=== PATIENT | male | born 1970 | race Caucasian/White ===

== ENCOUNTER 2017-09-14 15:40 | Inpatient (IN) | payer BC, OTHER ==
[~2017-09-14] VITALS: Ht 175.3 cm; Wt 90.7 kg
--- NOTE | 2017-09-14 | NUR ---
CIWA DEFERRED PATIENT SLEEPING. CIWA DEFERRED. RESPIRATION EVEN AND UNLABORED. SAFETY MEASURES IN PLACE. CALL LIGHT IN REACH. WILL CONTINUE TO MONITOR Addendum: 09/15/17 at 0435 by MARINA PALOMARES LVN ERROR: TIME OF CHARTING
--- NOTE | 2017-09-14 06:30 | NUR ---
PRE-ASSESSMENT: Pre-Assessment done at intake office, client is A/O x4, he presents with flat affect, anxious mood, flushed face. T 98, RR 16, BP 160/92, HR 94, spO2 @ 94% on RA, Pain 0/10. He is fully ambulatory. He denies any allergies; he reports a hx of withdrawal-induced seizure. PMH: COPD. Past surgical hx: Left hip surgery (2011), Left knee surgery (1992), Right foot surgery, Partial bowel resection for perforated diverticula (2014), Inguinal hernia repair Medications taken at home Spiriva 2 puffs BID Dulera 200mcg/5mcg 2 puffs BID Proair HFA 1 puff PRN BID Tums 750mg as needed Nicotine gum 2gm as needed Substance history Client reports consuming 1500 mL of vodka on a daily basis, last used 750mL @ 0530 09/14/17. He reports a episode of withdrawal-induced seizures. He has a hx of 12 prior treatments, last being in 2016 from Jul-Oct. Longest period of sobriety for a year on 2008.Protocol regarding Vital signs, urine drug test, blood drawn, and controlled medication discuss with client. Addendum: 09/14/17 at 1936 by MIGUEL ÁNGEL PORTER RN wrong time
--- NOTE | 2017-09-14 16:42 | NUR ---
Admissions Note 46year old male admitted to [facility] for withdrawal from alcohol. Client reports PMH COPD, Chronic tobacco use (he smokes 1 pack daily). Client is oriented to unit, educated about protocols and how to work TV and call light in his room. Weight: 200 pounds. Height: 5'9" CIWA: 5 Client appears anxious, irritable and noted clammy skin, skin intact. Bilateral lung rhonchi on auscultation, abdomen soft, non-tender, no edema noted. Client voice is soft, he avoids eye contact. Client has NKA. Regular diet ordered. Full code status ordered. Client reports a history of seizures x 1 (cant recall date). LBM was 09/14/17, small/brown/soft. Client denies a PCP. He refuses PNA/FLU vaccine at this time, stating he is afraid he might get sick because of it. He gives verbal consent for HIV. Client states that he lives with his mom and stepfather He reports hx of 12 prior treatments here at [facility], last been Jul- Oct 2015, where he relapse shortly after treatment. His longest period of sobriety is for a whole year in 2008. Dr Laurent assessed client. Urine was collected upon admission. All safety measures instituted Seizure precaution. Call light within reach. Will continue to monitor.
[2017-09-14] MEDS ORDERED: MAG HYDROX/AL HYDROX/SIMETH 30 ML LIQUID UDC PO PRN (16:45)
[2017-09-14] MEDS ORDERED: MIRALAX 17 GM POWD.PACK PO PRN (16:45)
[2017-09-14] MEDS ORDERED: LORAZEPAM 2 MG/1 ML VIAL IM PRN (16:45)
[2017-09-14] MEDS ORDERED: LORAZEPAM 1 MG TABLET PO PRN ×2 (16:45)
[2017-09-14] MEDS ORDERED: IV NS 1000 ML 1,000 ML IV PRN (16:45)
[2017-09-14] MEDS ORDERED: DICYCLOMINE HCL 20 MG TABLET PO PRN (16:45)
[2017-09-14] MEDS ORDERED: LOPERAMIDE HCL 2 MG CAPSULE PO PRN ×2 (16:45)
[2017-09-14] MEDS ORDERED: ACETAMINOPHEN 325 MG TABLET PO PRN (16:45)
[2017-09-14] MEDS ORDERED: MAGNESIUM HYDROXIDE 30 ML LIQUID UDC PO PRN (16:45)
[2017-09-14] MEDS ORDERED: CLONIDINE HCL 0.1 MG TABLET PO PRN (16:45)
[2017-09-14] MEDS ORDERED: ONDANSETRON 4 MG/2 ML VIAL IM PRN (16:45)
[2017-09-14] MEDS ORDERED: ONDANSETRON ODT 4 MG TAB.RAPDIS SL PRN (16:45)
[2017-09-14] MEDS ORDERED: IBUPROFEN 400 MG TABLET PO PRN (16:45)
[2017-09-14] MEDS ORDERED: MOME13HF INH (17:26)
[2017-09-14] MEDS ORDERED: TIOT18CA3 IH (17:26)
[2017-09-14] MEDS ORDERED: CALC-936 PO (17:26)
[2017-09-14] MEDS ORDERED: ALBU8.5H8 IH (17:26)
[2017-09-14] MEDS ORDERED: NICO2GUM38 BC (17:26)
[2017-09-14] MEDS: LORAZEPAM 1 MG TABLET PO SCH ×2 (17:47→21:54)
--- NOTE | 2017-09-14 17:48 | NUR ---
PRN Clonidine 0.1mg PO for anxiety, irritability. Call light within reach.
[2017-09-14 17:57] LABS: *AMPHETAMINE, URINE NEGATIVE (NEGATIVE); *BARBITURATE, URINE NEGATIVE (NEGATIVE); *CANNABINOID, URINE NEGATIVE (NEGATIVE); *COCCAINE, URINE NEGATIVE (NEGATIVE); *OPIATE, URINE NEGATIVE (NEGATIVE); *PHENCYCLIDINE SCREEN,URINE NEGATIVE (NEGATIVE)
[2017-09-14] MEDS ORDERED: THIAMINE HCL 200 MG/2 ML VIAL IM ONE (18:00)
[2017-09-14] MEDS: DULERA INHALER INH SCH (18:38)
[2017-09-14 18:41] LABS: BASOPHILS # (AUTO) 0.1 K/uL (0.0-8.0); BASOPHILS % (AUTO) 0.4 % (0.0-2.0); EOSINOPHILS # (AUTO) 0.1 K/uL (0.0-0.7); EOSINOPHILS % (AUTO) 0.7 % (0.0-7.0); HEMATOCRIT 46.3 % (40-50); LYMPHOCYTES # (AUTO) 1.6 K/UL (0.8-4.8); LYMPHOCYTES % (AUTO) 11.3 % (20.5-51.5); MEAN CORPUSCULAR HGB CONC 35 g/dL (32.0-37.0); MEAN CORPUSCULAR VOLUME 89.9 FL (82.0-92.0); NEUTROPHILS # (AUTO) 10.9 K/UL (1.8-8.9); NEUTROPHILS % (AUTO) 80.6 % (38.5-71.5); PLATELET COUNT (AUTO) 320 K/UL (150-450); RED BLOOD CELL COUNT(AUTO) 5.15 MIL/UL (4.7-6.1); WHITE BLOOD COUNT (AUTO) 13.7 K/UL (4.0-11.2)
--- NOTE | 2017-09-14 18:48 | NUR ---
Reassessment PRN Clonidine 0.1mg PO, client sounds asleep, easy to arouse, RR 16. Call light within reach.
[2017-09-14 19:06] LABS: ETHANOL < 3 MG/DL (0-0)
[2017-09-14 19:07] LABS: ALANINE AMINOTRANSFERASE 44 U/L (16-63); ALKALINE PHOSPHATASE 72 U/L (50-136); AMYLASE 19 U/L (25-115); ASPARTATE AMINOTRANSFERASE 29 U/L (15-37); BILIRUBIN,TOTAL 1.1 mg/dL (0.2-1.0); CARBON DIOXIDE 25 mmol/L (21-32); CHLORIDE 99 mmol/L (98-107); CREATININE 1.1 mg/dL (0.6-1.3); GLUCOSE 163 mg/dL (74-106); MAGNESIUM 1.4 mg/dL (1.8-2.4); POTASSIUM 3.3 mmol/L (3.5-5.1); TOTAL PROTEIN, SERUM 7.1 g/dL (6.4-8.2); UREA NITROGEN, BLOOD 11 mg/dL (7-18)
--- NOTE | 2017-09-14 19:30 | NUR ---
END OF SHIFT Client is a 46 y/o male, admitted to [facility] for withdrawal from alcohol. He is a/o x 4, he is in bed, he appears anxious, flushed face, moist skin. PRN Clonidine for anxiety, irritability, noted effective. He reports a hx of withdrawal-induced seizures, Client reports NKA, full code, regular diet. Side rails x 2 up, seizure precautions. Call light within reach.
[2017-09-14 20:00] VITALS: BP 137/77
[2017-09-14] MEDS ORDERED: MAGNESIUM OXIDE 400 MG TABLET PO ONE (20:00)
[2017-09-14] MEDS ORDERED: POTASSIUM CHLORIDE 10 MEQ CAPSULE.SA PO ONE (20:00)
--- NOTE | 2017-09-14 20:00 | NUR ---
START OF SHIFT NOTE RECEIVED REPORT FROM DAY SHIFT NURSE. PATIENT IS A 46 YEAR OLD MALE NEWLY ADMITTED FOR ETOH DEPENDENCE. UPON ADMISSION , PATIENT IS DRINKING 1,500 ML OF VODKA DAILY FOR A YEAR. PATIENT REPORTS PMH OF COPD, SEIZURE-WITHDRAWAL INDUCED, LEFT HIP SURGERY (2011), LEFT KNEE SURGERY , PARTIAL BOWEL [id number] FOR PERFORATED DIVERTICULA (2014), INGUINAL HERNIA REPAIR AND RIGHT FOOT SURGERY. SKIN INTACT. PATIENT WAS GIVEN PRN CLONIDINE. LATEST BP IS 155/87. LAST CIWA 12. RECEIVED PATIENT IN THE ROOM, RESTING, REPORTS BODY ACHES 7/10, HOT AND COLD SWEATS , NO N/V, NOTED PATIENT WITH OBVIOUS SWEATS ON FACE, PATIENT STATES HE'S TIRED AND WANT TO GET MORE SLEEP. ON FALL/SEIZURE PRECAUTION . SAFETY MEASURES IN PLACE. CALL LIGHT IN REACH. WILL CONTINUE TO MONITOR.
--- NOTE | 2017-09-14 21:54 | NUR ---
PRN MOTRIN ADMINISTRATION PATIENT REPORTS GENERALIZED BODY ACHES 5/10. WILL MONITOR FOR EFFECTIVENESS
[2017-09-15] VITALS: BP 131/82
--- NOTE | 2017-09-15 | NUR ---
CIWA DEFERRED PATIENT SLEEPING. CIWA DEFERRED. RESPIRATION EVEN AND UNLABORED. SAFETY MEASURES IN PLACE. CALL LIGHT IN REACH. WILL CONTINUE TO MONITOR
[2017-09-15] MEDS ORDERED: MULT-1045 PO (01:16)
[2017-09-15 04:00] VITALS: BP 140/89
--- NOTE | 2017-09-15 04:00 | NUR ---
CIWA DEFERRED PATIENT SLEEPING. CIWA DEFERRED. RESPIRATION EVEN AND UNLABORED. SAFETY MEASURES IN PLACE. CALL LIGHT IN REACH. WILL CONTINUE TO MONITOR
[2017-09-15] MEDS: PANTOPRAZOLE SODIUM 40 MG TABLET.DR PO SCH (07:00)
--- NOTE | 2017-09-15 07:18 | NUR ---
END OF SHIFT PATIENT IS A 46 YEAR OLD MALE NEWLY ADMITTED FOR ETOH DEPENDENCE. UPON ADMISSION , PATIENT IS DRINKING 1,500 ML OF VODKA DAILY FOR A YEAR. PATIENT REPORTS PMH OF COPD, SEIZURE-WITHDRAWAL INDUCED, LEFT HIP SURGERY (2011), LEFT KNEE SURGERY , PARTIAL BOWEL [id number] FOR PERFORATED DIVERTICULA (2014), INGUINAL HERNIA REPAIR AND RIGHT FOOT SURGERY. SKIN INTACT. PATIENT WAS GIVEN PRN MOTRIN FOR BODY ACHES. MAGNESIUM AND POTASSIUM WAS REPLACED. PATIENT ON FALL/SEIZURE PRECAUTION . SAFETY MEASURES IN PLACE. CALL LIGHT IN REACH. WILL CONTINUE TO MONITOR. SLEPT 10 HOURS. FLUID 1,281 INTAKE ML. VOIDED X 5. NO BM. LAST CIWA 7.
[2017-09-15 08:00] VITALS: BP 143/99
--- NOTE | 2017-09-15 08:30 | NUR ---
Received client in bed awake, alert, verbally responsive no distress, denies any discomfort.
[2017-09-15] MEDS: SPIRIVA HANDIHALER INH SCH (08:57)
[2017-09-15] MEDS: LORAZEPAM 1 MG TABLET PO SCH ×4 (08:59→21:08)
[2017-09-15] MEDS: THIAMINE HCL 100 MG TABLET PO SCH (08:59)
[2017-09-15] MEDS: DULERA INHALER INH SCH ×2 (08:59→16:57)
[2017-09-15] MEDS ORDERED: TUBERCULIN,PURIF.PROT.DERIV. 5 TU/0.1 ML TEST ID ONE ×2 (09:00→13:30)
[2017-09-15] MEDS: FOLIC ACID 1 MG TABLET PO SCH (09:00)
[2017-09-15] MEDS: MULTIVITAMINS,THERAPEUTIC TABLET PO SCH (09:00)
--- NOTE | 2017-09-15 11:25 | NUR ---
Pt in room awake, complient with meds no s/s of distress, encoureage to attend group, mild tremors noted.
[2017-09-15 12:45] VITALS: BP 144/97
--- NOTE | 2017-09-15 14:06 | NUR ---
THerapist prompted client to come into group today. Client agreed to attend.
[2017-09-15 16:00] VITALS: BP 162/92
--- NOTE | 2017-09-15 17:46 | NUR ---
pt in bed awake, alerty, oriented, ambulatory complient with meds, attended to some group, denies any diwscomfort, v/s stable, no distress.
--- NOTE | 2017-09-15 19:10 | NUR ---
Start of shift note Received report from day shift nurse. Pt is 46 yo male, A+Ox4, presenting to [facility] for ETOH dependence. Pt has NKA, is on Full code status, and on Regular diet. Pt is on Fall and Seizure precautions. Pt has HX of COPD and Seizure. Pt is on 5 day Ativan taper, tolerated well. No s/s of distress noted at this time. Respirations even and unlabored. Will continue to monitor.
[2017-09-15 20:15] VITALS: BP 143/81
[2017-09-15] MEDS: GABAPENTIN 300 MG CAPSULE PO SCH (21:08)
--- NOTE | 2017-09-15 22:55 | NUR ---
Pt placed on CPAP at this time settings CPAP 8, FIO2-28%. Pt is in no resp. distress noted. BVM at bedside, Pt to be monitored throughout the shift. Respironics V60 alarm parameters have been checked and remain audible. Addendum: 09/15/17 at 2343 by MARIANO DECKER RT Correction FIO2 is 21% not 28%
[2017-09-16 00:05] VITALS: BP 145/88
[2017-09-16 04:30] VITALS: BP 137/82
[2017-09-16 06:06] LABS: HEPATITIS B SURFACE AG Negative (Negative)
--- NOTE | 2017-09-16 06:44 | NUR ---
End of shift note Pt is 46 yo male, A+Ox4, presenting to [facility] for ETOH dependence. Pt has NKA, is on Full code status, and on Regular diet. Pt is on Fall and Seizure precautions. Pt has HX of COPD and Seizure. Pt is on 5 day Ativan taper, tolerated well. Pt slept for a total of 5 HRS. Last CIWA: 2 @0400. No s/s of distress noted at this time. Respirations even and unlabored. Will endorse to day shift nurse.
--- NOTE | 2017-09-16 06:45 | NUR ---
Went into pt room. Pt not in room at this time.
[2017-09-16] MEDS: PANTOPRAZOLE SODIUM 40 MG TABLET.DR PO SCH (06:50)
--- NOTE | 2017-09-16 07:45 | NUR ---
START OF SHIFT Rcvd endorsement from ongoing nurse, client is in room, he is a/o x4. Client presents with anxious mood, flat affect, flushed face, clammy skin. He reports body aches, chills, stomach cramps, and fatigue. Left lower lobe with expiratory wheezing, rhonchi noted at bilateral lungs. Cpap at bedside, client stated I only use it at night. Encourage client to attend to group therapy for skills to maintain sober. Encourage client to increase PO fluid intake as tolerated to facilitate detox. Client is a 46 y/o male, admitted to [facility] for withdrawal from alcohol. He is on a 5 day Ativan taper, tolerating well (day 2). Last CIWA 2 @ 0400. Client had an uneventful night, he slept 5 hrs. He reports a hx of withdrawal-induced seizures, Client reports NKA, full code, regular diet. Side rails x 2 up, seizure precautions. Call light within reach.
[2017-09-16 08:00] VITALS: BP 120/70
[2017-09-16] MEDS: PROAIR HFA (ALBUTEROL SULFATE) INH PRN ×2 (08:02→16:43)
--- NOTE | 2017-09-16 08:02 | NUR ---
PRN Proair HFA 2 puffs for left lower lobe expiratory wheezing. Call light within reach
[2017-09-16] MEDS: DULERA INHALER INH SCH ×2 (08:03→16:43)
[2017-09-16] MEDS: SPIRIVA HANDIHALER INH SCH (08:03)
[2017-09-16] MEDS: GABAPENTIN 300 MG CAPSULE PO SCH ×3 (08:03→20:37)
[2017-09-16] MEDS: LORAZEPAM 1 MG TABLET PO SCH ×3 (08:04→20:37)
[2017-09-16] MEDS: MULTIVITAMINS,THERAPEUTIC TABLET PO SCH (08:04)
[2017-09-16] MEDS: THIAMINE HCL 100 MG TABLET PO SCH (08:04)
[2017-09-16] MEDS: FOLIC ACID 1 MG TABLET PO SCH (08:04)
--- NOTE | 2017-09-16 09:02 | NUR ---
Reassessment PRN Proair HFA 2 puffs left lower lobe expiratory wheezing, but client reports being comfortable at this time. Call light within reach
[2017-09-16 12:00] VITALS: BP 133/88
--- NOTE | 2017-09-16 12:00 | NUR ---
Chest XR for chest pain, h/o aortic aneurysm; eval for widened mediastinum EKG for chest pain Vitals 133/88 P 87, RR18, spO2 95% on RA, T 97.8
--- NOTE | 2017-09-16 14:00 | NUR ---
MD Notification EKG impression Nonspecific intraventricular conduction delay. NNO at this time
--- NOTE | 2017-09-16 16:11 | NUR ---
MD NOTIFICATION XR chest impression: IMPRESSION: Widened mediastinum, possibly related to the aortic aneurysm. This finding is not optimally assessed on this portable chest radiograph. Abnormal opacity in the right mid to lower lung zone could be pleural calcification or rib abnormality. Right lower lung zone subsegmental atelectasis versus scar. NNO at this timer
--- NOTE | 2017-09-16 16:43 | NUR ---
PRN Proair HFA 2 puffs for dyspnea. Call light within reach
[2017-09-16 16:55] VITALS: BP 126/87
--- NOTE | 2017-09-16 17:43 | NUR ---
Reassessment PRN Proair HFA 2 puffs, client reports feeling betters and not having to much difficulty breathing.
[2017-09-16 17:55] LABS: BASOPHILS % (AUTO) 0.3 % (0.0-2.0); EOSINOPHILS # (AUTO) 0.2 K/uL (0.0-0.7); EOSINOPHILS % (AUTO) 2.9 % (0.0-7.0); HEMATOCRIT 42.6 % (40-50); HEMOGLOBIN 14.4 G/DL (14.0-18.0); LYMPHOCYTES # (AUTO) 1.7 K/UL (0.8-4.8); LYMPHOCYTES % (AUTO) 20.4 % (20.5-51.5); MEAN CORPUSCULAR HGB CONC 34 g/dL (32.0-37.0); MEAN CORPUSCULAR VOLUME 92.1 FL (82.0-92.0); MONOCYTES # (AUTO) 0.5 K/UL (0.1-1.30); NEUTROPHILS % (AUTO) 70.4 % (38.5-71.5); PLATELET COUNT (AUTO) 233 K/UL (150-450); RED BLOOD CELL COUNT(AUTO) 4.63 MIL/UL (4.7-6.1); WHITE BLOOD COUNT (AUTO) 8.4 K/UL (4.0-11.2)
[2017-09-16 17:59] LABS: CREATININE 0.7 mg/dL (0.6-1.3); MAGNESIUM 1.7 mg/dL (1.8-2.4); POTASSIUM 3.9 mmol/L (3.5-5.1)
--- NOTE | 2017-09-16 18:07 | NUR ---
MD Notification Lab values RBC 4.63 MCV 92.1 Lymph % 20.4 NNO at this time
[2017-09-16] MEDS ORDERED: MAGNESIUM OXIDE 400 MG TABLET PO ONE ×2 (18:15)
[2017-09-16] MEDS: CARVEDILOL 6.25 MG TABLET PO SCH (18:20)
--- NOTE | 2017-09-16 18:34 | NUR ---
IV access obtained: Procedure explained to the patient prior to performing the procedure. Patient expressed verbal consent and good verbal understanding. IV access obtained to patient's right forearm, attempted x 2 with good blood return. Tourniquet released. Sharps disposed off properly. Flushed adequately per unit protocol. IV site patent and intact.
--- NOTE | 2017-09-16 18:39 | NUR ---
Client is NPO except for medications 6 hrs after dinner for CT CHEST/ABDOMEN/PELVIS W CONTRAST.
--- NOTE | 2017-09-16 18:50 | NUR ---
START OF SHIFT NOTE: Patient is 46 year old male admitted to [facility] on 09/14/2017 for Alcohol dependence. Patient is continue 5 Day Ativan Taper with tolerating well without ASE. Patient remains compliant with treatment. Medications, and diet regime. Patient reports NKA, Regular diet. Patient is on Full Code, Regular Diet, Fall and Seizures Precautions. NPO since 1900. PMH: Alcohol dependence, COPD, History of withdrawal induced seizures x 1, Sleep apnea (C-Pap). Patient reports History of Treatments Hx x12. Last being in [facility] in 2016. Upon endorsement, patient is in his room alert and oriented x4. Patient is on NPO except for medications 6 hours after dinner for ordered CT Chest/Abdomen/Pelvis with contrast test @2230. Patient was educated for purpose of NPO. Patient returned his knowledge back by verbalized understanding. Patient has IV Heplock on Right forearm. IV site intact and patent. IV site flashed with NS. Dressing is dry and clean. Last CIWA 7. Patient's anxious, agitated, nervousness, and has tremors that can be felt. VS: T: 98.0, HR: 94, RA O2Sat: 95%, RR:20. Respirations are unlabored and even. Lung Sounds are clear thoroughly. Patient denies SOB. ECG and X-Ray ordered for chest pain done. X-Ray results received, and doctor notified. Patient c/o RUQ abdominal pain "3" by adult 1-10 pain scale. Abdomen is soft and non-tender. Bowel Sounds are active in all 4 quadrants. Skin is intact, warm and dry touch. All needs met. Safety measures in place: Call light within reach, bed in lowest position and locked, padded rails up x2. Patient is endorsed by day shift nurse, report received. Will continue to monitor closely.
[2017-09-16 20:00] VITALS: BP 158/98
[2017-09-16] MEDS: hydrALAZINE HCL 50 MG TABLET PO PRN (22:10)
--- NOTE | 2017-09-16 22:10 | NUR ---
APRESOLINE (HYDRALAZINE HCL 50 MG 1 TAB PO ADMINISTRATED FOR BP:139/108.
--- NOTE | 2017-09-16 22:23 | NUR ---
Patient is going to Radiology Department for CT Chest/Abdomen/Pelvis with contrast test @8.
--- NOTE | 2017-09-16 22:40 | NUR ---
Patient returned to his room from Radiology Department. CT Chest/Abdomen/Pelvis with contrast test done. All needs met. Safety measures in place: Call light within reach, bed in lowest position and locked, padded rails up x2. Will continue to monitor closely.
[2017-09-16] MEDS: diphenhydrAMINE 50 MG CAPSULE PO PRN (23:08)
--- NOTE | 2017-09-16 23:08 | NUR ---
PRN BENADRYL 50 MG 1 TAB PO ADMINISTRATION Patient c/o insomnia. PRN Benadryl 50 mg 1 tab PO administrated as ordered with full glass of water. Patient tolerated well. All needs met. Safety measures in place: Call light within reach, bed in lowest position and locked, padded rails up x2. Will continue to monitor closely.
--- NOTE | 2017-09-16 23:10 | NUR ---
RE-ASSESSMENT BP 148/93. APRESOLINE (HYDRALAZINE HCL) MG 1 TAB PO WAS EFFECTIVE.
--- NOTE | 2017-09-16 23:10 | NUR ---
Patient placed on CPAP at this time; settings CPAP 8 and FIO2-21%. Patient is in no respiratory distress noted at this time. Resuscitation bag is at bedside. Patient to be monitored throughout the shift. Respironics V60 alarm parameters have been checked and remain audible.
[2017-09-17] VITALS: BP 129/72
--- NOTE | 2017-09-17 00:08 | NUR ---
RE-ASSESSMENT Patient is sleeping. Respirations even and unlabored. RR 15. PRN Benadryl 50 mg 1 capsule PO for insomnia administrated @2308 was effective. All needs met. Safety measures on place. Call light within reach, bed in lowest position and locked, padded rails up bilaterally rails up bilaterally. Will continue to monitor closely.
[2017-09-17 04:00] VITALS: BP 128/80
--- NOTE | 2017-09-17 06:03 | NUR ---
Patient remains on CPAP at this time. No changes made to the settings. Pt appeared to have tolerated CPAP settings well. Respiraonics V60 alarm parameters have been checked and remain audible.
[2017-09-17] MEDS: PANTOPRAZOLE SODIUM 40 MG TABLET.DR PO SCH (06:36)
--- NOTE | 2017-09-17 07:21 | NUR ---
END OF SHIFT NOTE: Patient is 46 year old male admitted to [facility] on 09/14/2017 for Alcohol dependence. Patient is continue 5 Day Ativan Taper with tolerating well without ASE. Patient remains compliant with treatment, medications, and diet regime. Patient reports NKA, Regular diet. Patient is on Full Code, Regular Diet, Fall and Seizures Precautions. PMH: Alcohol dependence, COPD, History of withdrawal induced seizures x 1, Sleep apnea (C-Pap). Patient reports Treatments Hx x12. Last being in [facility] in 2015. CT Chest/Abdomen/Pelvis with contrast test done @2230. Results placed in chart. Doctor Drew Laurent aware. Patient received C-Pap treatment by Respiratory Therapist. Patient tolerated well. IV 22 G Heplock on right forearm intact, patent, and flashed with NS. Dressing is clean and dry. Last CIWA 4 @0400. CIWA taken when patient 's awake. Last VS @0400: T:98.0, BP 128/80, HR 75, RA SPO2: 98%, RR 16, pain level "0/10". Patient denies SI/HI. Respirations unlabored and even. Patient denied SOB and chest pain. Abdomen is soft and non-tender. Skin is intact, warm, and dry to touch. PRN Apresoline (Hydralazine HCL) 50 mg 1 tab PO for high BP administrated @2210 and PRN Benadryl 50 mg 1 cap PO for insomnia administrated @2308 were effective. Patient slept 6 hours, intake 1,045 ml, voided x3, stool x1. Encouraged fluids intake as tolerated. All needs met. Safety measures on place. Call light within reach, bed in lowest position and locked, padded rails up bilaterally. Patient endorsed to day shift nurse. Report given.
[2017-09-17 08:00] VITALS: BP 147/95
--- NOTE | 2017-09-17 08:00 | NUR ---
START OF SHIFT RECEIVED PT LAYING IN BED AWAKE, A/O X4. RESPIRATIONS EVEN AND EQUAL. PT REPORTS HAVING ANXIETY, AND SWEATING OFF AND ON. PT DENIES NAUSEA, SI/HI. TREMORS ARE VISIBLY SEEN ON THE HANDS. PT SLEPT 6 HRS, CIWA AT 5 AT 0800. PT ENCOURAGED TO DRINK LOTS OF FLUIDS TO PROMOTE DETOX PROCESS. IV 22G ON R FA, PATENT, DRY AND INTACT. BED ON LOWEST POSITION, CALL LIGHT WITHIN REACH. SAFETY PRECAUTIONS TAKEN. WILL CONTINUE TO MONITOR AND PROVIDE SUPPORT.
[2017-09-17] MEDS: GABAPENTIN 300 MG CAPSULE PO SCH ×2 (08:54→14:32)
[2017-09-17] MEDS: THIAMINE HCL 100 MG TABLET PO SCH (08:54)
[2017-09-17] MEDS: FOLIC ACID 1 MG TABLET PO SCH (08:54)
[2017-09-17] MEDS: MULTIVITAMINS,THERAPEUTIC TABLET PO SCH (08:55)
[2017-09-17] MEDS: PROAIR HFA (ALBUTEROL SULFATE) INH PRN (08:56)
[2017-09-17] MEDS: DULERA INHALER INH SCH ×2 (08:56→17:15)
[2017-09-17] MEDS: SPIRIVA HANDIHALER INH SCH (08:57)
[2017-09-17] MEDS: LORAZEPAM 1 MG TABLET PO SCH ×3 (09:00→17:14)
[2017-09-17] MEDS: CARVEDILOL 6.25 MG TABLET PO SCH ×2 (10:08→17:14)
[2017-09-17 12:00] VITALS: BP 153/105
[2017-09-17] MEDS: hydrALAZINE HCL 50 MG TABLET PO PRN ×2 (12:11→20:39)
--- NOTE | 2017-09-17 12:11 | NUR ---
PRN BP WAS 153/106 @ 1200. HYDRALAZINE 50 MG PO PRN WAS GIVEN.
--- NOTE | 2017-09-17 13:11 | NUR ---
PRN REASSESSMENT PT BP WAS AT 102/59 AT 1311. NO NOTED DISTRESS AT THIS TIME. WILL CONTINUE TO MONITOR.
[2017-09-17] MEDS ORDERED: ALBUTEROL SULFATE 2.5 MG/3 ML NEBU NEB PRN (14:30)
[2017-09-17 16:00] VITALS: BP 158/106
--- NOTE | 2017-09-17 19:20 | NUR ---
START OF SHIFT NOTE: Patient is 46 year old male admitted to [facility] on 09/14/2017 for Alcohol dependence, continued 5 Day Ativan Taper. Patient tolerating well without ASE. Patient remains compliant with treatment, medications, and diet regime. Patient's NKA, is on Full Code, Regular Diet, Fall and Seizures Precautions. PMH: Alcohol dependence, COPD, History of withdrawal induced seizures x 1, Sleep apnea (C-Pap). Upon endorsement, patient is in his room alert and oriented x4. Speech is soft and clear. CIWA 7. Patient's presented anxious, agitated, nervousness, with tremors that can be felt. Respirations are unlabored and even. Lung Sounds are clear thoroughly. Patient denies SOB. Patient denies pain now: "0" by adult 1-10 pain scale. Abdomen is soft and non-tender. Bowel Sounds are active in all 4 quadrants. Skin is intact, warm and dry touch. Encouraged fluids intake as tolerated. All needs met. Safety measures in place: Call light within reach, bed in lowest position and locked, padded rails up x2. Patient is endorsed by day shift nurse, report received. Will continue to monitor closely.
--- NOTE | 2017-09-17 19:20 | NUR ---
END OF SHIFT PT LAYING IN BED, A/O X4. RESPIRATIONS EVEN AND EQUAL. PT REPORTS HAVING MILD ANXIETY, GENERALIZED BODY ACHES, AND RESTLESSNESS . PT DENIES NAUSEA. TREMORS ON THE HANDS NOTED. LAST CIWA AT 5 AT 1600. PT ENCOURAGED TO DRINK LOTS OF FLUIDS TO PROMOTE DETOX PROCESS. IV 22G ON R FA HAS BEEN REMOVED ON SHIFT. PT GIVEN HYDRALAZINE 50 MG PO PRN AT 1211 FOR HIGH BP 153/108. BP WAS 102/59 AT REASSESSMENT. PT HAS BEEN SEEN BY THE SLURRY WORKER AND THERE ARE NO NEW ORDERS. BED ON LOWEST POSITION, CALL LIGHT WITHIN REACH. SAFETY PRECAUTIONS TAKEN. WILL GIVE ENDORSEMENT AND ALL PERTINENT INFO TO NIGHT NURSE.
[2017-09-17 20:00] VITALS: BP 152/102
[2017-09-17] MEDS: GABAPENTIN 400 MG CAPSULE PO SCH (20:15)
[2017-09-17] MEDS: CARVEDILOL 12.5 MG TABLET PO SCH (20:15)
[2017-09-17] MEDS: diphenhydrAMINE 50 MG CAPSULE PO PRN (20:38)
--- NOTE | 2017-09-17 20:39 | NUR ---
PRN APRESOLINE (HYDRALAZINE HCL) 50 MG 1 TAB PO ADMINISTRATED FOR BP:152/102 AND PRN BENADRYL 50 MG 1 TAB PO ADMINISTRATED FOR INSOMNIA WITH FULL GLASS OF WATER ORDERED. PATIENT TOLERATED WELL. ALL NEEDS MET. SAFETY MEASURES IN PLACE: CALL LIGHT WITHIN REACH, BED IN THE LOWEST POSITION, AND LOCKED, PADDED BED RAILS UP X2. WILL CONTINUE TO MONITOR CLOSELY.
[2017-09-17] MEDS ORDERED: LORAZEPAM 1 MG TABLET PO SCH (21:00)
--- NOTE | 2017-09-17 21:39 | NUR ---
RE-ASSESSMENT Patient is sleeping. BP decreased from 152/102 to 107/78; HR decreased [id number] to 89. Respirations even and unlabored. RR 16. PRN Apresoline (Hydralazine HCL) 50 mg 1 tab for HTN and PRN Benadryl 50 mg 1 capsule PO for insomnia administrated @2038 were effective. All needs met. Safety measures on place. Call light within reach, bed in lowest position and locked, padded rails up bilaterally rails up bilaterally. Will continue to monitor closely.
[2017-09-18] VITALS: BP 117/73
[2017-09-18 04:00] VITALS: BP 120/69
[2017-09-18] MEDS: PANTOPRAZOLE SODIUM 40 MG TABLET.DR PO SCH (06:25)
[2017-09-18] MEDS: CARVEDILOL 12.5 MG TABLET PO SCH ×2 (06:31→20:13)
--- NOTE | 2017-09-18 07:15 | NUR ---
END OF SHIFT NOTE: Patient is 46 year old male admitted to [facility] on 09/14/2017 for medically supervised safety withdrawal from Alcohol. Patient continue 5 Day Ativan Taper. Patient tolerating well without ASE. Patient remains compliant with treatment, medications, and diet regime. Patient reports NKA, is on Full Code, Regular Diet, Fall and Seizures Precautions. PMH: Alcohol dependence, COPD, History of withdrawal induced seizures x 1, Sleep apnea (C-Pap). Last CIWA 5 @0400. Patient presented with anxiety, agitation, nervousness, restlessness, enlarged pupils, sweating, and tremors that can be felt. CIWA taken when patient 's awake. Last VS @0400: T:97.7, BP 120/69, HR: 76, RA SPO2: 95%, RR 16, pain level "0/10". Patient denies SI/HI. Respirations unlabored and even. Patient denied SOB and chest pain. Patient received C-Pap treatment by Respiratory Therapist. Patient tolerated well. Abdomen is soft and non-tender. Skin is intact, warm, and dry to touch. PRN Apresoline (Hydralazine HCL) 50 mg 1 tab PO for high BP and PRN Benadryl 50 mg 1 cap PO for insomnia administrated @2038 were effective. Patient slept 5 hours, intake 500 ml, voided x3. Patient attended group activities. Encouraged fluids intake as tolerated. All needs met. Safety measures on place. Call light within reach, bed in lowest position and locked, padded rails up bilaterally. Patient endorsed to day shift nurse. Report given.
--- NOTE | 2017-09-18 07:37 | NUR ---
BEGINNING OF SHIFT Patient endorsement report received from safemaker nurse, all pertinent information discussed. patient is a 46 year old male admitted on: 09/14/2017, patient with admitting Dx: etoh dependence. patient Continues on 5 day Ativan taper and is scheduled to begin day 4 of taper, will monitor closely. Received patient in her room. Alert and oriented x 4. On fall and seizure precautions. Educated patient on the current plan of care for the day and her medication regimen. Safety measures in place. call light kept with in reach, will continue to monitor closely.
[2017-09-18 08:20] VITALS: BP 138/91
[2017-09-18] MEDS: SPIRIVA HANDIHALER INH SCH (08:25)
[2017-09-18] MEDS: DULERA INHALER INH SCH ×2 (08:26→16:35)
[2017-09-18] MEDS: LISINOPRIL 10 MG TABLET PO SCH (08:26)
[2017-09-18] MEDS: GABAPENTIN 400 MG CAPSULE PO SCH ×3 (08:26→20:12)
[2017-09-18] MEDS: LORAZEPAM 1 MG TABLET PO SCH ×3 (08:26→20:12)
[2017-09-18] MEDS: THIAMINE HCL 100 MG TABLET PO SCH (08:26)
[2017-09-18] MEDS: MULTIVITAMINS,THERAPEUTIC TABLET PO SCH (08:26)
[2017-09-18] MEDS: FOLIC ACID 1 MG TABLET PO SCH (08:26)
[2017-09-18 13:09] VITALS: BP 138/92
[2017-09-18 17:00] VITALS: BP 116/77
--- NOTE | 2017-09-18 18:46 | NUR ---
END OF SHIFT Patient alert and oriented x4, compliant with therapeutic plan of care. Patient with admitting Dx: etoh dependence. Patient continues on 5 day Ativan taper as ordered, well tolerated, continues on day 4 of taper. 0900 assessment patient presented with; anxiety and barely sweating with ciwa score of: 4; 1300 assessment patient presented with: mild anxiety with ciwa score of: 1; 1700 assessment patient presented with: mild anxiety with ciwa score of: 1; Patient encouraged adequate PO fluid intake as tolerated. Encouraged to attend group therapies/sessions to learn new coping skills to prevent relapse, noted attending and participating denies any SI/HI. Patient was seen by Dr. Ng during shift, Benadryl changed to trazodone, d/t patient reported unable to sleep at night. Patients Respirations even and unlabored. No SOB noted, lungs are clear upon auscultation, continues on Dulera and Advair as ordered, well tolerated. Skin warm and dry to touch. Abdomen soft and non-distended with (+) BS in all 4 quadrants. No complains of N/V/D or constipation noted. Bladder non-distended. Voids independently. Safety measures in place. Call light kept with in reach. All needs met and rendered.
--- NOTE | 2017-09-18 18:46 | NUR ---
START OF SHIFT NOTE: Patient is 46 year old male admitted to [facility] on 09/14/2017 for Alcohol dependence, continued 5 Day Ativan Taper. Patient tolerating well without ASE. Patient remains compliant with treatment, medications, and diet regime. Patient's NKA, is on Full Code, Regular Diet, Fall and Seizures Precautions. PMH:Alcohol dependence, COPD, History of withdrawal induced seizures x 1, Sleep apnea (C-Pap). Upon endorsement, patient is in his room alert and oriented x4. Speech is soft and clear. Patient is cooperative. CIWA 4. Patient's anxious, agitated, nervousness, with tremors that can be felt, and barely sweating. Respirations are unlabored and even. Lung Sounds are clear thoroughly. Patient denies SOB and chest pain. Patient c/o body aches now: "4" by adult 1-10 pain scale. Abdomen is soft and non-tender. Bowel Sounds are active in all 4 quadrants. Patient denies nausea, vomiting, and diarrhea. Skin is intact, warm and dry touch. Encouraged to attend groups activities. Encouraged fluids intake as tolerated. All needs met. Safety measures in place: Call light within reach, bed in lowest position and locked, padded rails up x2. Patient is endorsed by day shift nurse, report received. Will continue to monitor closely.
[2017-09-18 20:00] VITALS: BP 119/80
[2017-09-18] MEDS: TRAZODONE 50 MG TABLET PO PRN (23:33)
--- NOTE | 2017-09-18 23:33 | NUR ---
PRN TRAZODONE 50 MG 1 TAB PO ADMINISTRATION Patient c/o insomnia. PRN Trazodone 50 mg 1 tab PO administrated with full glass of water as ordered. Patient tolerated well. All needs met. Safety measures on place. Call light within reach, bed in lowest position and locked, padded rails up bilaterally. Will continue to monitor closely.
[2017-09-19] VITALS: BP 99/69
--- NOTE | 2017-09-19 00:25 | NUR ---
Patient placed on CPAP with settings CPAP 8 and FIO2-21%. Patient shows no signs of respiratory distress at this time. Resuscitation bag is at bedside. Alarm parameters have been checked and remain on/audible. Will continue to monitor throughout the shift.
--- NOTE | 2017-09-19 00:33 | NUR ---
RE-ASSESSMENT Patient is sleeping. Respirations even and unlabored. RR 15. PRN Trazodone 50 mg 1 tab PO administrated @2333 for insomnia was effective. All needs met. Safety measures on place. Call light within reach, bed in lowest position and locked, padded rails up bilaterally. Will continue to monitor closely.
--- NOTE | 2017-09-19 04:00 | NUR ---
VS REFUSED AND COWS/CIWA DEFERRED Patient refused to be woken up for 0400 VS. COWS/CIWA deferred d/t patient sleeping to assess while patient is awake. Safety measures on place by hospital policy: Call light within reach, bed in lowest position and locked, side rails up x2. Will continue to monitor closely.
--- NOTE | 2017-09-19 05:45 | NUR ---
Pt remains on CPAP 8, 21%FiO2. Tolerating settings well with no signs of respiratory distress noted throughout shift. BMV at bedside.
[2017-09-19] MEDS: PANTOPRAZOLE SODIUM 40 MG TABLET.DR PO SCH (06:41)
[2017-09-19] MEDS: CARVEDILOL 12.5 MG TABLET PO SCH ×2 (06:42→19:51)
--- NOTE | 2017-09-19 07:20 | NUR ---
END OF SHIFT NOTE: Patient is 46 year old male admitted to [facility] on 09/14/2017 for medically supervised safety withdrawal from Alcohol. Patient continue 5 Day Ativan Taper. Patient tolerating well without ASE. Patient reports NKA, is on Full Code, Regular Diet, Fall and Seizures Precautions. PMH: Alcohol dependence, COPD, History of withdrawal induced seizures x 1, Sleep apnea (C-Pap). CIWA decreased from 4 @2000 to 2 @0000: Patient presented with anxiety, agitation, nervousness, restlessness, enlarged pupils, sweating, and tremors that can be felt. CIWA taken when patient 's awake. Patient refused to be woken up for 0400 VS. COWS/CIWA deferred d/t patient sleeping to assess while patient is awake. Last VS @0000: T:97.9, BP 99/69, HR: 79, RA SPO2: 100%, RR 19, pain level "0/10". Patient denies SI/HI. Respirations unlabored and even. Patient denied SOB and chest pain. C-Pap Tx done by RT. Abdomen is soft and non-tender. Patient denies N/V/D. Skin is intact, warm, and dry to touch. PRN Trazodone 50 mg 1 tab PO for insomnia administrated @2333 was effective. Patient remains compliant with treatment, medications, and diet regime. Patient slept 5 hours, intake 1,350 ml, voided x2, stool x1. Patient attended group activities. Encouraged fluids intake as tolerated. Encouraged to attend groups activities. All needs met. Safety measures on place. Call light within reach, bed in lowest position and locked, padded rails up bilaterally. Patient endorsed to day shift nurse. Report given.
--- NOTE | 2017-09-19 07:46 | NUR ---
BEGINNING OF SHIFT Patient endorsement report received from clinical data coordinator nurse, all pertinent information discussed. patient is a 46 year old male admitted on: 09/14/2017, patient with admitting Dx: etoh dependence. patient Continues on 5 day Ativan taper and is scheduled to begin day 5 of taper, will monitor closely. Received patient in her room. Alert and oriented x 4. On fall and seizure precautions. Educated patient on the current plan of care for the day and her medication regimen. Safety measures in place. call light kept with in reach, will continue to monitor closely.
[2017-09-19 08:06] VITALS: BP 131/89
[2017-09-19] MEDS: DULERA INHALER INH SCH ×2 (08:39→16:56)
[2017-09-19] MEDS: FOLIC ACID 1 MG TABLET PO SCH (08:39)
[2017-09-19] MEDS: SPIRIVA HANDIHALER INH SCH (08:39)
[2017-09-19] MEDS: GABAPENTIN 400 MG CAPSULE PO SCH ×3 (08:40→20:52)
[2017-09-19] MEDS: THIAMINE HCL 100 MG TABLET PO SCH (08:40)
[2017-09-19] MEDS: LISINOPRIL 10 MG TABLET PO SCH (08:40)
[2017-09-19] MEDS: MULTIVITAMINS,THERAPEUTIC TABLET PO SCH (08:40)
[2017-09-19] MEDS: LORAZEPAM 1 MG TABLET PO SCH ×2 (08:40→20:52)
[2017-09-19 13:00] VITALS: BP 128/86
[2017-09-19 17:00] VITALS: BP 131/80
--- NOTE | 2017-09-19 18:47 | NUR ---
END OF SHIFT Patient alert and oriented x4, compliant with therapeutic plan of care. Patient with admitting Dx: etoh dependence. Patient continues on 5 day Ativan taper as ordered, well tolerated, continues on day 5 of taper. 0900 assessment patient presented with: mild anxiety and barely sweating with ciwa score of: 2; 1300 assessment patient presented with; mild anxiety and barely sweating with ciwa score of: 2; 1700 assessment patient presented with: mild anxiety with ciwa score of: 1; Patient encouraged adequate PO fluid intake as tolerated. Encouraged to attend group therapies/sessions to learn new coping skills to prevent relapse, noted attending and participating denies any SI/HI. Patients Respirations even and unlabored. No SOB noted, lungs are clear upon auscultation, continues on Dulera and Advair as ordered, well tolerated. Skin warm and dry to touch. Abdomen soft and non-distended with (+) BS in all 4 quadrants. No complains of N/V/D or constipation noted. Bladder non-distended. Voids independently. Safety measures in place. Call light kept with in reach. All needs met and rendered. Patient endorsed to restaurant shift leader nurse, all pertinent information discussed.
--- NOTE | 2017-09-19 19:55 | NUR ---
PRN MEDICATION: Prn MOM 300 ml p.o. given per c/o " a little constipation".
[2017-09-19 20:00] VITALS: BP 125/89
--- NOTE | 2017-09-19 20:00 | NUR ---
1999 Patient received awake, alert and just returning to his room # [id number] from [facility] in recreation room. Gait is brisk, steady. Patient responds to nurse's greeting and introduction with good eye contact and "Hi, how are you doing?" Patient is oriented to person, place, day, date, time and his personal situation. Patient's color is pink and his skin is clean, warm, dry and intact. Patient denies any pain or other discomfort at this time and he states that he has been eating his regular diet meal trays and taking various fluids ad tristen with no gastric issues thus far. Patient states that he is feeling " a little better today" and his "birthday is tomorrow". Vital signs are: 97.8-102-18 125/89, O2 Sat 95%, CIWA 1 . Patient was admitted on 09/14/17 for Alcohol withdrawal and he is currently on a 5-Day Ativan medication taper, which he is apparently tolerating well thus far. Fall/seizure precautions continue. Patient voices no requests for anything at this time. Patient is friendly, cooperative and verbally appropriate when interacting with nurse. Bed is locked and in lowest position, padded bed rails are up X 2 and call light on bed.
--- NOTE | 2017-09-20 | NUR ---
Patient sleeping soundly and does not wish to be awakened for V/S, CIWA to be done at this time. V/S, CIWA deferred.
[2017-09-20] MEDS: TRAZODONE 50 MG TABLET PO PRN ×2 (00:05→23:06)
--- NOTE | 2017-09-20 00:05 | NUR ---
PRN MEDICATION: Prn Trazadone 50 mg p.o. given per request for sleep medication.
--- NOTE | 2017-09-20 01:05 | NUR ---
REASSESSMENT PRN MEDICATION: Patient is sleeping comfortably in low semi-fowlers position with eyes closed and respirations even, unlabored at 14. Patient wearing his C-Pap mask, which is connected to bedside C-Pap machine.
--- NOTE | 2017-09-20 04:00 | NUR ---
Patient continues to sleep soundly with eyes closed and respirations even and unlabored. C-Pap mask remains on patient's face. V/S, CIWA deferred.
--- NOTE | 2017-09-20 06:30 | NUR ---
0630 Patient slept a total of 6 hours and he had 4 voids and 1 stools. Total intake was 1,500 ml p.o. Prn medications given noted separately per floor protocol. V/SS afebrile, last CIWA 1 at 1999. Patient is presently downstairs on hospital [facility] for smoke break.
[2017-09-20] MEDS: PANTOPRAZOLE SODIUM 40 MG TABLET.DR PO SCH (06:40)
--- NOTE | 2017-09-20 07:34 | NUR ---
Start of shift note; Patient is a 46 year old male admitted on 09/14/17 for ETOH dependence. Patient was placed on a 5 day Ativan taper, no adverse reactions noted. Patient reported history of COPD, Seizure, sleep apnea. Patient is on full code status, regular diet, NKA. Patient slept for 6 hours. Patient's last CIWA is 1 per endorsement. Patient is on fall and seizure precaution. Bed in lowest position call light within reach. Will continue to monitor patient.
[2017-09-20 08:00] VITALS: BP 118/82
[2017-09-20] MEDS: GABAPENTIN 400 MG CAPSULE PO SCH ×3 (08:04→21:36)
[2017-09-20] MEDS: LISINOPRIL 10 MG TABLET PO SCH (08:04)
[2017-09-20] MEDS: CARVEDILOL 12.5 MG TABLET PO SCH ×2 (08:04→19:56)
[2017-09-20] MEDS: MULTIVITAMINS,THERAPEUTIC TABLET PO SCH (08:05)
[2017-09-20] MEDS: FOLIC ACID 1 MG TABLET PO SCH (08:05)
[2017-09-20] MEDS: SPIRIVA HANDIHALER INH SCH (08:05)
[2017-09-20] MEDS: THIAMINE HCL 100 MG TABLET PO SCH (08:05)
[2017-09-20] MEDS: DULERA INHALER INH SCH ×2 (08:05→16:59)
[2017-09-20] MEDS ORDERED: LORAZEPAM 1 MG TABLET PO SCH (09:00)
[2017-09-20 12:00] VITALS: BP 122/83
[2017-09-20 16:00] VITALS: BP 121/72
[2017-09-20] MEDS ORDERED: HYDR50TA68 PO (18:34)
[2017-09-20] MEDS ORDERED: LISI10TA5 PO (18:34)
[2017-09-20] MEDS ORDERED: PANT40TA2 PO (18:34)
[2017-09-20] MEDS ORDERED: FOLI1TAB16 PO (18:34)
[2017-09-20] MEDS ORDERED: CARV12.52 PO (18:34)
[2017-09-20] MEDS ORDERED: GABA-536 PO (18:34)
--- NOTE | 2017-09-20 19:22 | NUR ---
End of shift note; Patient is AOX4. Patient is a 46 year old male admitted on 09/14/17 for ETOH dependence. Patient was placed on a 5 day Ativan taper, no adverse reactions noted. Patient reported history of COPD, Seizure, sleep apnea. Patient is on full code status, regular diet, NKA. Patient remained compliant with treatment plan and medication regime. Medications were effective in reducing withdrawal symptoms. All safety measures secured. Met all needs.
[2017-09-20 20:00] VITALS: BP 145/95
--- NOTE | 2017-09-20 20:00 | NUR ---
1999 Patient received awake, alert and standing outside of his room #[id number], talking to selected patients in hallway. Upon seeing nurse, patient states, " Hi, you my nurse tonight again?" Patient is oriented to person, place, day, date, time and his personal situation. Patient's color is pink and his skin is clean, warm, dry and intact. Patient states, " You know I'm leaving tomorrow, to a place in [place]?". Patient denies any pain or other discomforts and he offer no requests for anything at this time. Patient states that he continues to go to all [employer] groups, eat his regular diet meal trays and take various fluids ad tristen with no gastric issues noted. Vital signs are: 98-117-18 145/95, O2 Sat 96%, CIWA 2. Patient was admitted on 09/14/17 for Alcohol withdrawal and he has completed a 5-Day Ativan medication taper at this time. Patient states that he is going down to hospital patio for smoke break soon. Fall/seizure precautions continue. C-Pap machine at bedside for night time prn use. Bed is locked and in lowest position, bed rails are up X 1 and call light on bed.
--- NOTE | 2017-09-20 23:06 | NUR ---
PRN MEDICATION: Prn Trazadone 50 mg p.o. given per request for sleep medication.
--- NOTE | 2017-09-21 | NUR ---
Patient sleeping soundly and he does not wish to be awakened for V/S to be done at this time. CIWA ordered Q 4hr while patient awake. V/S, CIWA deferred.
--- NOTE | 2017-09-21 00:06 | NUR ---
REASSESSMENT PRN MEDICATION: Patient is sleeping soundly in low semi-fowlers position of comfort with C-Pap mask on and connected to C-Pap machine. Respirations are even, unlabored at 12.
--- NOTE | 2017-09-21 04:00 | NUR ---
Patient continues to sleep soundly, comfortably with unlabored respirations at 14. C-Pap mask on face and connected to C-Pap machine at bedside. V/S, CIWA deferred.
--- NOTE | 2017-09-21 06:30 | NUR ---
0630 Patient slept a total of 5 hours and he and 2 voids and no stools. Total intake was 1,591 ml p.o. Prn medications given noted separately per floor protocol. V/SS afebrile, last CIWA 2 at 1999. Patient is presently awake and up to bathroom for AM void. No requests or c/o anything at this time. Patient's condition is stable. C-Pap mask off now and set aside on C-Pap machine.
[2017-09-21] MEDS: PANTOPRAZOLE SODIUM 40 MG TABLET.DR PO SCH (06:59)
--- NOTE | 2017-09-21 07:30 | NUR ---
Start of shift note; Patient is a 46 year old male admitted on 09/14/17 for ETOH dependence. Patient was placed on a 5 day Ativan taper, no adverse reactions noted. Patient reported history of COPD, Seizure, sleep apnea. Patient is on full code status, regular diet, NKA. Patient slept for 5 hours. Patient's last CIWA is 2 per endorsement. Patient is on fall and seizure precaution. Bed in lowest position call light within reach. Patient is medically cleared for discharge today. Patient completed treatment without any adverse reactions. Will continue to monitor patient.
[2017-09-21 08:00] VITALS: BP 136/77
[2017-09-21] MEDS: SPIRIVA HANDIHALER INH SCH (08:16)
[2017-09-21] MEDS: DULERA INHALER INH SCH (08:17)
[2017-09-21] MEDS: MULTIVITAMINS,THERAPEUTIC TABLET PO SCH (08:17)
[2017-09-21] MEDS: CARVEDILOL 12.5 MG TABLET PO SCH (08:17)
[2017-09-21] MEDS: GABAPENTIN 400 MG CAPSULE PO SCH (08:17)
[2017-09-21 08:18] VITALS: BP 130/77
[2017-09-21] MEDS: FOLIC ACID 1 MG TABLET PO SCH (08:18)
[2017-09-21] MEDS: THIAMINE HCL 100 MG TABLET PO SCH (08:18)
[2017-09-21] MEDS: LISINOPRIL 10 MG TABLET PO SCH (08:18)
--- NOTE | 2017-09-21 09:00 | NUR ---
Discharge note; Patient is AOX4. Patient is medically cleared for discharge. Patient completed treatment without any adverse reactions. All valuables, belongings and medications returned to patient. Patient left the hospital at exactly 0900 on 09/21/17. Patient left the hospital in a stable condition.
== END 2017-09-21 09:00 | disposition other institution (70) | DRG 895 ==
LOC: SRC 15:40
PROVIDERS: ADMIT Internal Medicine; ATTEND Internal Medicine
PROC: HZ2ZZZZ Detoxification Services for Substance Abuse Treatment (ICD-10-PCS; principal; 2017-09-14)
PROC: HZ41ZZZ Group Counseling for Substance Abuse Treatment, Behavioral (ICD-10-PCS; 2017-09-15)
PROC: HZ31ZZZ Individual Counseling for Substance Abuse Treatment, Behavioral (ICD-10-PCS; 2017-09-15)
DX: F10.232 Alcohol dependence with withdrawal with perceptual disturbance (principal); I71.2 Thoracic aortic aneurysm, without rupture; E83.42 Hypomagnesemia; I15.9 Secondary hypertension, unspecified; J98.11 Atelectasis; K70.0 Alcoholic fatty liver; K29.20 Alcoholic gastritis without bleeding; Y90.0 Blood alcohol level of less than 20 mg/100 ml; E86.0 Dehydration; F17.210 Nicotine dependence, cigarettes, uncomplicated; F14.21 Cocaine dependence, in remission; Z81.1 Family history of alcohol abuse and dependence; Z91.89 Other specified personal risk factors, not elsewhere classified; G47.33 Obstructive sleep apnea (adult) (pediatric); E87.6 Hypokalemia; G47.00 Insomnia, unspecified; D72.823 Leukemoid reaction; R07.89 Other chest pain; F12.90 Cannabis use, unspecified, uncomplicated; K42.9 Umbilical hernia without obstruction or gangrene; K57.30 Diverticulosis of large intestine without perforation or abscess without bleeding; M43.17 Spondylolisthesis, lumbosacral region
CPT/HCPCS: 36415; 70030-TC; 71010; 80307; 83735; 85025; 86592; 86705; 86803; 87340; 87806; 93005; 94660; G0480; J3411; Q0163

== ENCOUNTER → 2017-09-16 | Outpatient (CLI) | payer BC, OTHER ==
[~2017-09-16] MED LIST: ALBU8.5H8 IH; CALC-936 PO; CARV12.52 PO; FOLI1TAB16 PO; GABA-536 PO; HYDR50TA68 PO; IOHEXOL 300MG/ML 100 ML INFUS..BTL ONE; IV NORMAL SALINE 250 ML IV ONE; LISI10TA5 PO; MOME13HF INH; MULT-1045 PO; NICO2GUM38 BC; NORMAL SALINE FLUSH 10 ML DISP.SYRIN ONE; PANT40TA2 PO; TIOT18CA3 IH
== END | disposition home or self-care (01) ==
LOC: XRAY 17:51
PROVIDERS: ATTEND Internal Medicine
DX: I71.9 Aortic aneurysm of unspecified site, without rupture (principal); K76.0 Fatty (change of) liver, not elsewhere classified; K42.9 Umbilical hernia without obstruction or gangrene; J98.11 Atelectasis; M95.4 Acquired deformity of chest and rib; M51.04 Intervertebral disc disorders with myelopathy, thoracic region; K57.30 Diverticulosis of large intestine without perforation or abscess without bleeding
CPT/HCPCS: 71260; 74177; J3490; J7050; Q9967